=== PATIENT | male | born 1995 | race Caucasian/White ===

== ENCOUNTER 2019-07-10 05:59 | Emergency (ER) | payer OTHER ==
[~2019-07-10] VITALS: Ht 188 cm; Wt 63.5 kg
--- NOTE | 2019-07-10 06:12 | NUR ---
DR. QUINN AT BEDSIDE FOR MSE.
[2019-07-10 06:45] LABS: BASOPHILS % (AUTO) 0.3 % (0.0-2.0); CARBON DIOXIDE 29 mmol/L (21-32); CHLORIDE 102 mmol/L (98-107); EOSINOPHILS % (AUTO) 0.7 % (0.0-7.0); GLUCOSE 101 mg/dL (74-106); HEMATOCRIT 41.2 % (36.7-47.1); HEMOGLOBIN 14.3 g/dL (12.5-16.3); LYMPHOCYTES # (AUTO) 1.6 K/uL (20.0-40.0); LYMPHOCYTES % (AUTO) 30.6 % (20.5-51.5); MEAN CORPUSCULAR HGB CONC 35 g/dL (32.5-36.3); MEAN CORPUSCULAR VOLUME 89.4 fL (73.0-96.2); MONOCYTES # (AUTO) 0.3 K/uL (2.0-10.0); MONOCYTES % (AUTO) 6.3 % (0.0-11.0); NEUTROPHILS # (AUTO) 3.3 K/uL (1.8-8.9); NEUTROPHILS % (AUTO) 62.1 % (38.5-71.5); PLATELET COUNT (AUTO) 164 K/uL (152-348); POTASSIUM 3.6 mmol/L (3.5-5.1); UREA NITROGEN, BLOOD 20 mg/dL (7-18); WHITE BLOOD COUNT (AUTO) 5.4 K/uL (3.6-10.2)
[2019-07-10 06:52] LABS: ALANINE AMINOTRANSFERASE 21 U/L (16-63); ALKALINE PHOSPHATASE 63 U/L (50-136); ASPARTATE AMINOTRANSFERASE 17 U/L (15-37); BILIRUBIN,DIRECT < 0.1 mg/dL (0.0-0.2); BILIRUBIN,TOTAL 0.6 mg/dL (0.2-1.0); TOTAL PROTEIN, SERUM 6.9 g/dL (6.4-8.2)
[2019-07-10 06:53] LABS: ETHANOL < 3 MG/DL (0-0)
--- NOTE | 2019-07-10 07:02 | NUR ---
Wool Dyer assumes care- Patient is AOx4, ENNIS, calm & breathing easily, NAD. No seizure activity seen in ER. Patient's significant other [email or web address], pending urine specimen and [email or web address] time.
--- NOTE | 2019-07-10 07:02 | NUR ---
HAND OFF TO CATALINO MEEKS.
[2019-07-10 07:39] LABS: *AMPHETAMINE, URINE NEGATIVE (NEGATIVE); *BARBITURATE, URINE NEGATIVE (NEGATIVE); *CANNABINOID, URINE POSITIVE (NEGATIVE); *COCCAINE, URINE NEGATIVE (NEGATIVE); *OPIATE, URINE NEGATIVE (NEGATIVE); *PHENCYCLIDINE SCREEN,URINE NEGATIVE (NEGATIVE)
--- NOTE | 2019-07-10 07:39 | NUR ---
Urine sent to lab. Patient is for discharge per Dr Meléndez. Copies of all tests' results were provided to patient. Patient discharged to home in stable condition & brisk steady gait. Written and verbal after care instructions given to patient and significant other. Patient and significant other verbalized understanding & compliance of instructions.
== END 2019-07-10 07:39 | disposition home or self-care (01) ==
LOC: ER 06:07
DX: R56.9 Unspecified convulsions (principal)
CPT/HCPCS: 36415; 70450; 80048; 80076; 80307; 82550; 85025; 93005; 99285; G0480; A4663